=== PATIENT | male | born 1990 | race Native Hawaiian/Other Pacific Islander ===

== ENCOUNTER 2016-11-29 10:05 | Emergency (ER) | payer OTHER ==
[2016-11-29 10:11] VITALS: BMI 24.7
--- NOTE | 2016-11-29 10:39 | ED PDOC ---
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 Denies focal weakness, change speech or vision, incoordination or syncope. Due to see his neurologist at [facility] this morning for results of MRI performed last week. Past Medical History Reviewed: Historical Data, Nursing Documentation, Vital Signs Vital Signs: Last Vital Signs Temp 97.8 F 11/29/16 13:42 Pulse 71 11/29/16 13:42 Resp 18 11/29/16 13:42 BP 106/75 11/29/16 13:42 Pulse Ox 98 11/29/16 15:15 - Medical History Other PMH: Astrocytoma - Surgical History Other surgeries: craniotomy in 2014 - Family History Family History: States: Unknown Family Hx - Allergies Allergies/Adverse Reactions: Allergies Allergy/AdvReac Type Severity Reaction Status Date / Time No Known Allergies Allergy Verified 11/29/16 10:20 Review of Systems ROS Statement: Except As Marked, All Systems Reviewed And Found Negative Gastrointestinal: Positive for: Nausea Neurological: Positive for: Dizziness Physical Exam - Reviewed Nursing Documentation Reviewed: Yes Vital Signs Reviewed: Yes - Physical Exam Appears: Positive for: Well, Non-toxic, No Acute Distress Head Exam: Positive for: ATRAUMATIC, NORMAL INSPECTION, NORMOCEPHALIC Skin: Positive for: Normal Color, Warm, DRY Eye Exam: Positive for: EOMI, Normal appearance, PERRL Neck: Positive for: Normal, Supple Cardiovascular/Chest: Positive for: Regular Rate, Rhythm Respiratory: Positive for: Normal Breath Sounds. Negative for: Respiratory Distress Gastrointestinal/Abdominal: Positive for: Normal Exam, Soft. Negative for: Tenderness Extremity: Positive for: Normal ROM. Negative for: Deformity, Swelling Neurologic/Psych: Positive for: Alert, Oriented. Negative for: Motor/Sensory Deficits - Laboratory Results Result Diagrams: 11/29/16 11:00 11/29/16 11:00 - ECG O2 Sat by Pulse Oximetry: 98 (RA) Pulse Ox Interpretation: Normal Medical Decision Making Medical Decision Making: Time: 1115 Impression: Nausea, dizziness Plan: -- Bloodwork -- IV Fluids -- Zofran 4mg IV Reassess Time: 1319 CT Head Ordered Time: 1350 Bloodwork reviewed and is unremarkable. Patient reports improvement with IV fluids and Zofran. Case discussed with patient's neurology team at [facility], Dr. Mabry ([id number]) states MRI this past was with no changes. Recommends additional dose of Keppra. Patient to be discharge home with instructions to follow up at [facility] tomorrow. Time: 1500 CT Head Impression: 1. No acute findings related to/accounting for the clinical presentation. 2. Postoperative findings left temporal lobe/ adjacent calvarium. No evidence of underlying edema or mass effect. Scribe Attestation: Documented by Brenda Barillas acting as a scribe for Roberto Wise DO. Provider Attestation: All medical record entries made by the Scribe were at my direction and personally dictated by me. I have reviewed the chart and agree that the record accurately reflects my personal performance of the history, physical exam, medical decision making, and the department course for this patient. I have also personally directed, reviewed, and agree with the discharge instructions and disposition. Disposition - Clinical Impression Clinical Impression: Dizziness - Disposition Disposition: Routine/Home Condition: STABLE Additional Instructions: See your neurology team at [facility] in next 2-3 days for re-evaluation and further treatment. Return to ER for any worse or new symptoms. Instructions: Dizziness (ED) Forms: [employer] (Azeri)
[2016-11-29] MEDS ORDERED: Sodium Chloride 0.9% 1,000 ML IV STA (10:44)
[2016-11-29 11:10] LABS: BASO % 0.8 % (0.0-2.0); EOS # 0.2 K/uL (0.0-0.7); EOS % 2.8 % (0.0-4.0); HEMOGLOBIN 15.2 g/dL (12.0-18.0); LYMPH # 1.7 K/uL (1.0-4.3); LYMPH % 26.7 % (20.0-40.0); MEAN CELL VOLUME 83.7 fl (80.0-94.0); MEAN CORPUSCULAR HEMOGLOBIN 29.7 pg (27.0-31.0); MEAN CORPUSCULAR HGB CONC 35.4 g/dL (33.0-37.0); MEAN PLATELET VOLUME 7.8 fl (7.2-11.7); MONO # 0.4 K/uL (0.0-0.8); NEUT % 63.7 % (50.0-75.0); NRBC % 0.1 % (0.0-0.0); RBC 5.12 Mil/uL (4.40-5.90); RED CELL DISTRIBUTION WIDTH 13.6 % (11.5-14.5); WHITE BLOOD COUNT 6.2 K/uL (4.8-10.8)
[2016-11-29 11:20] LABS: ALB/GLOB RATIO 1.6 (1.0-2.1); ALBUMIN 4.5 g/dL (3.5-5.0); ALT/SGPT 116 U/L (21-72); AST/SGOT 51 U/L (17-59); BLOOD UREA NITROGEN 10 mg/dl (9-20); CALCIUM 9.1 mg/dL (8.4-10.2); GFR AFRICAN-AMERICAN > 60; GFR NON-AFRICAN AMERICAN > 60
[2016-11-29 12:06] LABS: URINE BILIRUBIN NEGATIVE (NEGATIVE); URINE BLOOD NEGATIVE (NEGATIVE); URINE CLARITY SLIGHTY-CLOUDY (Clear); URINE COLOR YELLOW (YELLOW); URINE GLUCOSE (UA) NEG (Normal); URINE LEUKOCYTE ESTERASE NEG Leu/uL (Negative); URINE NITRATE NEGATIVE (NEGATIVE); URINE PROTEIN NEGATIVE (NEGATIVE); URINE UROBILINOGEN 0.2-1.0 mg/dL (0.2-1.0)
[2016-11-29 13:43] VITALS: BP 106/75; PULSE 71; RESP 18; TEMP 97.8
--- NOTE | 2016-11-29 15:02 | CT ---
PROCEDURE: CT HEAD WITHOUT CONTRAST. HISTORY: dizziness COMPARISON: None available. TECHNIQUE: Axial computed tomography images were obtained through the head/brain without intravenous contrast. Coronal and sagittal reconstructed images. Radiation dose: Total exam DLP = 748.02 mGy-cm. This CT exam was performed using one or more of the following dose reduction techniques: Automated exposure control, adjustment of the mA and/or kV according to patient size, and/or use of iterative reconstruction technique. FINDINGS: HEMORRHAGE: No intracranial hemorrhage. BRAIN: No mass effect or edema. Encephalomalacia /postoperative findings left temporal lobe. Dystrophic calcifications within the tip of the temporal lobe adjacent to the area of encephalomalacia. VENTRICLES: Unremarkable. No hydrocephalus. CALVARIUM: Postoperative changes related to prior remote left craniotomy. To PARANASAL SINUSES: Unremarkable as visualized. No significant inflammatory changes. MASTOID AIR CELLS: Unremarkable as visualized. No inflammatory changes. OTHER FINDINGS: None. IMPRESSION: 1. No acute findings related to/accounting for the clinical presentation. 2. Postoperative findings left temporal lobe/ adjacent calvarium. No evidence of underlying edema or mass effect.
[2016-11-29 15:13] VITALS: O2SAT 98
--- NOTE | 2016-11-30 07:55 | CARD ---
APPROVED REPORT EKG Measurement Heart [id number] <Conclusion> Normal sinus rhythm Normal ECG
== END 2016-11-29 16:06 | disposition home or self-care (01) ==
LOC: H.ER 10:05 → EDBD 10:05 → H.ER 16:06
DX: R42 Dizziness and giddiness (principal); R11.0 Nausea